=== PATIENT | male | born 1985 | race Caucasian/White ===

== ENCOUNTER 2018-09-24 05:55 | Day surgery (SDC) | payer OTHER ==
[2018-09-20 17:36] VITALS: BMI 24.1
[2018-09-24] VITALS (14 sets, daily range): BP systolic 120–144; BP diastolic 56–84; PULSE 58–98; RESP 14–24; Ht 177.8 cm; Wt 75.5 kg
[~2018-09-24] VITALS: Ht 177.8 cm; Wt 75.5 kg
[~2018-09-24 05:55] MED LIST: IBUP200C11 PO
[2018-09-24] MEDS ORDERED: SOD CHLORIDE 0.9% 1,000 ML IV SCH (06:00)
[2018-09-24] MEDS ORDERED: CEFAZOLIN 2 GM/50 ML (PMX) 50 ML IVPB ONE (06:00)
[2018-09-24] MEDS ORDERED: BUPIVACAINE 0.25% (MPF) 30 ML INJ ONE (06:55)
--- NOTE | 2018-09-24 07:16 | PREAC ---
Date/Time of Note Date/Time of Note DATE: 09/24/18 TIME: 07:15 Anesthesia Eval and Record Evaluation Time Pre-Procedure Interview DATE: 09/24/18 TIME: 07:15 Age 33 Sex male NPO: 8 hrs Preoperative diagnosis gall bladder polyp Planned procedure lap narciso Past Medical History Past Medical History: Includes Cardio: Dyslipidemia Surgery & Anesthesia Issues No known issue Meds Anticoagulation: No Beta Jeny within 24 hr: No Reason Beta Jeny not given: Pt. not on B-Jeny Reported Medications Ibuprofen* (Advil*) 200 Mg Capsule, 200 MG PO Q6H PRN for PAIN, CAP 09/20/18 Current Medications Sodium Chloride 1,000 ml @ 75 mls/hr [id number] IV ; Start 09/24/18 at 06:00; Stop 09/24/18 at 19:19 Meds reviewed: Yes Allergies Coded Allergies: No Known Allergy (Unverified , 09/24/18) Allergies Reviewed: Yes Labs/Studies Labs Reviewed: Reviewed by anesthesiologist test: N/A Studies: ECG (nl), CXR (napd) Pre-procedure Exam Last vitals Vital Signs Date Temp Pulse Resp B/P (MAP) Pulse Ox O2 O2 Flow FiO2 Time Delivery Rate 09/24/18 98.6 98 18 144/84 100 Room Air 07:02 (104) Airway: Adequate mouth opening, Adequate thyromental dist Mallampati: Mallampati II Teeth: Normal Lung: Normal Heart: Normal ASA Physical Status ASA physical status: 2 Emergency: None Planned Anesthetic General/MAC: ETT Nerve block: TAP (bilateral) Planned Pain Management Single shot nerve block, Parenteral pain med Pre-operative Attestations Prior to commencing anesthesia and surgery, the patient was re-evaluated, there was verification of: *The patient's identity *The results of appropriate recent lab work and preoperative vital signs *The above evaluation not changing prior to induction *Anesthetic plan, risk benefits, alternative and complications discussed with patient/family; questions answered; patient/family understands, accepts and wishes to proceed. Gallo Spivey M.D. Sep 24, 2018 07:16
[2018-09-24] MEDS ORDERED: TRIMETHOBENZAMIDE 100 MG/ML VIAL IM PRN ×2 (07:30)
[2018-09-24] MEDS ORDERED: ALBUTEROL 0.083% (NEB) 2.5 MG/3 ML AMP HHN PRN ×2 (07:30)
[2018-09-24] MEDS ORDERED: ONDANSETRON 4 MG INJ IV PRN ×2 (07:30)
[2018-09-24] MEDS ORDERED: FENTAnyl 50 MCG/ML VIAL IV PRN ×6 (07:30)
[2018-09-24] MEDS ORDERED: OXYCODONE/ACETAMINOPHEN (5/325) TAB PO PRN ×4 (07:30)
[2018-09-24] MEDS ORDERED: EPHEDrine 25 MG/5 ML SYG IV PRN ×2 (07:30)
[2018-09-24] MEDS ORDERED: DIPHENHYDRAMINE 50 MG INJ IV PRN ×2 (07:30)
[2018-09-24] MEDS ORDERED: MIDAZOLAM 1 MG/ML 2 ML INJ IV PRN ×2 (07:30)
[2018-09-24] MEDS ORDERED: hydrALAzine 20 MG INJ IV PRN ×2 (07:30)
[2018-09-24] MEDS ORDERED: IPRATROPIUM (NEB) 0.5 MG/2.5 ML AMP HHN PRN ×2 (07:30)
[2018-09-24] MEDS ORDERED: HYDROmorphONE 1 MG/5 ML IV SYRINGE IV PRN ×6 (07:30)
[2018-09-24] MEDS ORDERED: LABETALOL HCL 20MG INJ IV PRN ×2 (07:30)
[2018-09-24] MEDS ORDERED: MEPERIDINE 25 MG INJ IV PRN ×2 (07:30)
[2018-09-24] MEDS ORDERED: DESFLURANE 15 MIN ONE (07:30)
[2018-09-24] MEDS ORDERED: GLYCOPYRROLATE 0.4 MG INJ ONE (07:33)
[2018-09-24] MEDS ORDERED: NEOSTIGMINE 3 MG/3 ML SYRINGE ONE (07:33)
[2018-09-24] MEDS ORDERED: ROCURONIUM 50 MG INJ ONE (07:33)
[2018-09-24] MEDS ORDERED: PROPOFOL 20 ML ONE (07:33)
[2018-09-24] MEDS ORDERED: CEFAZOLIN 1 GM INJ ONE (07:33)
[2018-09-24] MEDS ORDERED: FENTAnyl 50 MCG/ML VIAL ONE ×3 (07:35→08:26)
[2018-09-24] MEDS ORDERED: DEXAMETHASONE 4 MG/ML 5 ML INJ ONE (07:36)
[2018-09-24] MEDS ORDERED: MIDAZOLAM 1 MG/ML 2 ML INJ ONE (07:36)
[2018-09-24] MEDS ORDERED: ONDANSETRON 4 MG INJ ONE (07:36)
[2018-09-24] MEDS ORDERED: ROPIVACAINE 0.5 % 30 ML VIAL ONE (07:42)
[2018-09-24] MEDS ORDERED: METOCLOPRAMIDE 10 MG INJ ONE (08:18)
[2018-09-24] MEDS ORDERED: KETOROLAC 30 MG INJ ONE (08:18)
--- NOTE | 2018-09-24 08:26 | OPR ---
Date/Time of Note Date/Time of Note DATE: 09/24/18 TIME: 08:22 Operative Report Procedure Date: Sep 24, 2018 Preoperative Diagnosis gallbladder polyp Postoperative Diagnosis same Operation/Procedure Performed laparoscopic cholecystectomy Surgeon see signature line [employer] Team Member none Anesthesia Type: general Estimated Blood Loss: 10 - 50 ml's Transfusion none Specimen gallbladder Grafts/Implants none Complications none Pt Condition Post Procedure: stable Indications This is a 33-year-old male with a gallbladder polyp that symptomatic. He req uest surgical excision of his gallbladder. Risks alternatives benefits and personal were discussed the patient. Patient expressed understanding consents to the operation. Procedure Description Patient is taken to the OR and prepped and draped in usual sterile fashion. Surgical timeout was performed. IV antibiotics given. Infraumbilical transverse incision was made at the 15 blade. Dissection with cautery skin onto the fascia. The fascia was grasped with [place] is divided with curved Pride scissors. 0 Vicryl use this was placed into the fascia. Sidhu trocar was introduced. Pneumoperitoneum was established. Midepigastric 12 mm optical trocar was placed in direct visualization. Right upper quadrant upper flank 5 mm optical trochars were placed under direct visualization. Upon initial inspection there is some adhesions to the gallbladder. The gallbladder was grasped with the fundus and retracted and lateral cephalad direction. The adhesions were taken down bluntly. [place] graspers used to dissect out the cystic duct and cystic artery. The critical view was established. The cystic duct was divided with the clips proximal to distal and the division was performed laparoscopic scissors. Cystic artery was divided with the clips proximal to distal and the division was performed laparoscopic scissors. The gallbladder was taken of the gallbladder bed. Good hemostasis established in the surgical bed. The gallbladder was retrieved Endo Catch bag. All ports were removed under direct visualization. Infraumbilical 0 Vicryl use this was tied down. Skin was closed using skin sheela. A tap block was provided by the anesthesiologist at the beginning of the case. Dry dressings were applied. Mely JOHNSON Sep 24, 2018 08:26
[2018-09-24] MEDS ORDERED: HYDROCODONE/APAP (5/325) TAB PO ONE (08:30)
--- NOTE | 2018-09-24 08:43 | PAC ---
Date/Time of Note Date/Time of Note DATE: 09/24/18 TIME: 08:43 Post-Anesthesia Notes Post-Anesthesia Note Last documented vital signs Vital Signs Date Temp Pulse Resp B/P (MAP) Pulse Ox O2 O2 Flow FiO2 Time Delivery Rate 09/24/18 97.8 08:42 09/24/18 98 18 144/84 100 Room Air 07:02 (104) Activity: WNL Respiratory function: WNL Cardiovascular function: WNL Mental status: Baseline Pain reasonably controlled: Yes Hydration appropriate: Yes Nausea/Vomiting absent: Yes Gallo Spivey M.D. Sep 24, 2018 08:43
== END 2018-09-24 10:05 | disposition home or self-care (01) ==
LOC: SDS 05:55
PROVIDERS: ATTEND Surgery
DX: K82.4 Cholesterolosis of gallbladder (principal)
CPT/HCPCS: 47562; 88304; J0690; J1100; J1170; J1885; J2250; J2405; J2710; J2765; J2795; J3010; Z7512; Z7610